=== PATIENT | female | born 1985 | race Caucasian/White ===

== ENCOUNTER 2021-11-11 12:10 | Emergency (ER) | payer SELFPAY ==
[~2021-11-11] VITALS: Ht 162.6 cm; Wt 142.9 kg
[2021-11-11 12:16] VITALS: BP 121/74
--- NOTE | 2021-11-11 12:31 | NUR ---
SHANI VASQUEZ AT BEDSIDE EXAMINING PT
[2021-11-11] MEDS ORDERED: NACL 0.9% 1,000 ML IV ONE (12:35)
[2021-11-11] MEDS ORDERED: ONDANSETRON 4 MG/2 ML VIAL IVP ONE (12:35)
[2021-11-11] MEDS ORDERED: MORPHINE SULFATE 4 MG/ML SYR IVP ONE ×2 (12:35→13:25)
--- NOTE | 2021-11-11 12:43 | NUR ---
PT TAKEN TO CT VIA W/C.
--- NOTE | 2021-11-11 12:54 | NUR ---
PT BROUGHT BACK FROM CT VIA W/C.
--- NOTE | 2021-11-11 13:09 | NUR ---
35 y/o female bib self c/o lower abd pain x 1 day. Pt reports nausea, and diarrhea x 1 this am, yellow brown in color. ABD is soft and tender to palpation. Respirations are even and unlabored. Pt is A&O x 4, even and steady gait. Pt reports taking x2 tylenol 500 mg this am. Pt denies fever, sob, headache, cp at this time. PMEDHX: Psoriasis, anxiety, MDD nkda
[2021-11-11 13:15] LABS: APPEARANCE,URINE CLEAR (CLEAR); BILIRUBIN,URINE 1+ (NEGATIVE); BLOOD, URINE NEGATIVE (NEGATIVE); COLOR,URINE DARK YELLOW (YELLOW); LEUKOCYTE ESTERASE ,URINE TRACE (NEGATIVE); NITRITE, URINE POSITIVE (NEGATIVE); UGLUCOSE NEGATIVE (NEGATIVE)
[2021-11-11 13:20] LABS: BASOPHILS % (AUTO) 0.2 % (0.0-2.0); EOSINOPHILS # (AUTO) 0.2 K/uL (0-0.4); EOSINOPHILS % (AUTO) 0.9 % (0.0-4.0); HEMATOCRIT 35.8 % (36-48); HEMOGLOBIN 11.9 g/dL (12.0-16.0); LYMPHOCYTES # (AUTO) 2.3 K/uL (2.5-16.5); LYMPHOCYTES % (AUTO) 9.8 % (20.5-51.1); MEAN CORPUSCULAR HEMOGLOBIN 28 pg (27-31); MEAN CORPUSCULAR HGB CONC 33 g/dL (33-37); MEAN CORPUSCULAR VOLUME 84.7 fL (80-94); MONOCYTES # (AUTO) 0.8 K/uL (0.8-1.0); MONOCYTES % (AUTO) 3.4 % (1.7-9.3); NEUTROPHILS # (AUTO) 20.1 K/uL (1.8-7.7); NEUTROPHILS % (AUTO) 85.7 % (42.2-75.2); PLATELET COUNT (AUTO) 374 K/uL (140-450); RED BLOOD CELL COUNT(AUTO) 4.22 MIL/uL (4.20-5.40)
[2021-11-11 13:22] LABS: RBC,URINE 0-5 /HPF (0-5)
[2021-11-11 13:26] LABS: CALCIUM OXALATE CRYSTALS,UR None Seen /HPF (None Seen); COARSE GRANULAR CASTS,URINE None Seen /LPF (None Seen); FINE GRANULAR CASTS,URINE None Seen /LPF (None Seen); OTHER CASTS, URINE None Seen /LPF (None Seen); OTHER CRYSTALS,URINE None Seen /HPF (None Seen); RED BLOOD CELL CASTS,URINE None Seen /LPF (None Seen); TRICHOMONAS,URINE None Seen /HPF (None Seen); TRIPLE PHOSPHATE CRYSTAL,UR None Seen /HPF (None Seen); URIC ACID CRYSTALS,URINE None Seen /HPF (None Seen); URINE AMORPHOUS URATE None Seen /HPF (None Seen); WAXY CASTS,URINE None Seen /LPF (None Seen); YEAST,URINE None Seen /HPF (None Seen)
[2021-11-11 13:27] LABS: HYALINE CASTS, URINE 0-10 /LPF (None Seen)
[2021-11-11 13:49] LABS: ALBUMIN 3.3 g/dL (3.4-5.0); ANION GAP 13.6 (8-16); CARBON DIOXIDE 27.1 mmol/L (21-32); CREATININE 0.9 mg/dL (0.6-1.3); POTASSIUM 3.7 mmol/L (3.5-5.1); TOTAL BILIRUBIN 0.7 mg/dL (0.0-1.0)
[2021-11-11 13:55] LABS: WHITE BLOOD COUNT (AUTO) 23.5 K/uL (4.8-10.8)
[2021-11-11] MEDS ORDERED: ACET-8386 PO (14:03)
[2021-11-11] MEDS ORDERED: SULF-59 PO (14:03)
[2021-11-11] MEDS ORDERED: ONDA-188 SL (14:03)
[2021-11-11 14:14] VITALS: BP 111/61
--- NOTE | 2021-11-11 14:15 | NUR ---
Patient discharged with v/s stable. Written and verbal after care instructions given and explained about uti. Patient alert, oriented and verbalized understanding of instructions. Ambulatory with steady gait. All questions addressed prior to discharge. ID band removed. Patient advised to follow up with PMD. Rx of norco, zofran, bactrim given. Patient educated on indication of medication including possible reaction and side effects. Opportunity to ask questions provided and answered.
--- NOTE | 2021-11-14 12:56 | NUR ---
LATE ENTRY- IV NORMAL SALINE DISCONTINUED AT 1415.
== END 2021-11-11 14:14 | disposition home or self-care (01) ==
LOC: MED 12:10
DX: N39.0 Urinary tract infection, site not specified (principal); R19.7 Diarrhea, unspecified; R11.0 Nausea; F41.9 Anxiety disorder, unspecified; Z98.890 Other specified postprocedural states; Z79.899 Other long term (current) drug therapy
CPT/HCPCS: 36415; 74176; 80053; 81001; 81025; 83690; 85025; 87086; 96361; 96374; 96375; 99284; J2270; J2405; J7030

== ENCOUNTER 2021-11-23 10:16 | Emergency (ER) | payer SELFPAY ==
[~2021-11-23] VITALS: Ht 162.6 cm; Wt 145.1 kg
[~2021-11-23 10:16] MED LIST: ACET-8386 PO; ONDA-188 SL; SULF-59 PO
[2021-11-23 10:19] VITALS: BP 154/49
--- NOTE | 2021-11-23 10:22 | NUR ---
AT PATIENT BEDSIDE
--- NOTE | 2021-11-23 10:23 | NUR ---
36 Y/O FEMALE BIB SELF C/O LLQ ABDOMINAL PAIN/ NAUSEA X 2WKS. PT STATES PAIN IS RATED 8/10 CONSTANT, STABBING WHICH RADIATES TO BACK. PT DENIES AGGRAVATING OR ALLEVIATING FACTORS. ABDOMEN IS TENDER TO PALPATION. PT. DENIES HEMATURIA, DYSURIA, DIARRHEA, CONSTIPATION, FEVER OR CHILLS. PT TOOK TYLENOL THIS AM FOR PAIN. PT WAS SEEN HERE FOR UTI 11/04/21. PT IS A&O X4. BED AT LOWEST POSITION, BED RAIL X1. PMH: PSORIASIS, ANXIETY, MDD
[2021-11-23] MEDS ORDERED: KETOROLAC 30 MG/ML VIAL IVP ONE (10:40)
[2021-11-23] MEDS ORDERED: NACL 0.9% 1,000 ML IV ONE (10:40)
--- NOTE | 2021-11-23 10:50 | NUR ---
BLOOD AND CULTURES COLLECTED HANDED TO [employer]INE[employer]
--- NOTE | 2021-11-23 11:00 | NUR ---
US AT PT. BEDSIDE
[2021-11-23 11:13] LABS: BASOPHILS # (AUTO) 0.1 K/uL (0.00-0.22); BASOPHILS % (AUTO) 0.6 % (0.0-2.0); EOSINOPHILS # (AUTO) 0.5 K/uL (0-0.4); EOSINOPHILS % (AUTO) 4.1 % (0.0-4.0); HEMATOCRIT 36.4 % (36-48); LYMPHOCYTES # (AUTO) 3.2 K/uL (2.5-16.5); LYMPHOCYTES % (AUTO) 24.5 % (20.5-51.1); MEAN CORPUSCULAR HEMOGLOBIN 28 pg (27-31); MEAN CORPUSCULAR HGB CONC 33 g/dL (33-37); MEAN CORPUSCULAR VOLUME 84.8 fL (80-94); MONOCYTES # (AUTO) 0.5 K/uL (0.8-1.0); MONOCYTES % (AUTO) 3.7 % (1.7-9.3); NEUTROPHILS # (AUTO) 8.7 K/uL (1.8-7.7); NEUTROPHILS % (AUTO) 67.1 % (42.2-75.2); PLATELET COUNT (AUTO) 366 K/uL (140-450); RED BLOOD CELL COUNT(AUTO) 4.29 MIL/uL (4.20-5.40); RED CELL DISTRIBUTION WIDTH 14.9 % (11.6-13.7)
[2021-11-23 11:28] LABS: ALBUMIN 3.1 g/dL (3.4-5.0); CARBON DIOXIDE 29.3 mmol/L (21-32); CREATININE 0.7 mg/dL (0.6-1.3); POTASSIUM 4.3 mmol/L (3.5-5.1); TOTAL BILIRUBIN 0.2 mg/dL (0.0-1.0)
[2021-11-23 11:56] LABS: APPEARANCE,URINE SL CLOUDY (CLEAR); BILIRUBIN,URINE NEGATIVE (NEGATIVE); BLOOD, URINE NEGATIVE (NEGATIVE); COLOR,URINE YELLOW (YELLOW); LEUKOCYTE ESTERASE ,URINE 1+ (NEGATIVE); NITRITE, URINE NEGATIVE (NEGATIVE); UGLUCOSE NEGATIVE (NEGATIVE)
[2021-11-23] MEDS ORDERED: ONDANSETRON 4 MG/2 ML VIAL IVP ONE (12:25)
[2021-11-23] MEDS ORDERED: MORPHINE SULFATE 4 MG/ML SYR IVP ONE (12:25)
[2021-11-23 13:28] LABS: CALCIUM OXALATE CRYSTALS,UR None Seen /HPF (None Seen); COARSE GRANULAR CASTS,URINE None Seen /LPF (None Seen); FINE GRANULAR CASTS,URINE None Seen /LPF (None Seen); HYALINE CASTS, URINE None Seen /LPF (None Seen); OTHER CRYSTALS,URINE None Seen /HPF (None Seen); RBC,URINE 0-5 /HPF (0-5); TRICHOMONAS,URINE None Seen /HPF (None Seen); TRIPLE PHOSPHATE CRYSTAL,UR None Seen /HPF (None Seen); URIC ACID CRYSTALS,URINE None Seen /HPF (None Seen); URINE AMORPHOUS URATE None Seen /HPF (None Seen); WAXY CASTS,URINE None Seen /LPF (None Seen); YEAST,URINE None Seen /HPF (None Seen)
[2021-11-23 13:29] LABS: OTHER CASTS, URINE None Seen /LPF (None Seen); RED BLOOD CELL CASTS,URINE None Seen /LPF (None Seen)
[2021-11-23] MEDS ORDERED: ACET-8386 PO (13:53)
[2021-11-23 14:05] VITALS: BP 113/58
[2021-11-24 22:19] LABS: MYOGLOBIN, SERUM <21 ng/mL (28 - 72)
--- NOTE | 2021-11-27 08:14 | NUR ---
RECEIVED LAB RESULT FOR GC + AT THIS TIME. COPY TO BE PLACED IN INFECTION CONTROL FILE. DISCREPTANCY FILED.
== END 2021-11-23 14:05 | disposition home or self-care (01) ==
LOC: MED 10:16
DX: R10.32 Left lower quadrant pain (principal); R11.0 Nausea; F41.9 Anxiety disorder, unspecified; L40.9 Psoriasis, unspecified; Z79.899 Other long term (current) drug therapy
CPT/HCPCS: 36415; 74176; 76830; 80053; 81001; 82553; 83605; 83874; 85025; 87086; 87491; 96361; 96374; 96375; 99285; J1885; J2270; J2405; J7030; Q0092; 96372

== ENCOUNTER 2021-11-27 13:55 | Emergency (ER) | payer SELFPAY ==
[~2021-11-27] VITALS: Ht 162.6 cm; Wt 145.1 kg
[2021-11-27 14:01] VITALS: BP 144/91
--- NOTE | 2021-11-27 14:08 | NUR ---
BIB SELF FOR RECHECK. C/O LOWER BACK PAIN X 2 WEEK. SEEN AT ER [facility] LAST NIGHT FOR PID & ANTIBIOTIC DOXYCYCLINE. SEEN HERE 11/23/21 FOR ABDOMINAL PAIN & LAB RESULT: + GONORRHEA
--- NOTE | 2021-11-27 14:10 | NUR ---
Maria Guadalupe driver in ED - 11/27/21 at 1410 by [facility] Patient being evaluated by CHETNA at bedside.
--- NOTE | 2021-11-27 14:10 | NUR ---
Patient being evaluated by CHETNA at TRIAGE ROOM.
[2021-11-27] MEDS ORDERED: DOXY-487 PO (14:14)
[2021-11-27] MEDS ORDERED: AZITHROMYCIN 250 MG TAB PO ONE (14:15)
[2021-11-27] MEDS ORDERED: cefTRIAXone 1,000 MG in LIDOCAINE MPF 1% 2.1 ML IM ONE (14:15)
[2021-11-27] MEDS ORDERED: cefTRIAXone 1,000 MG VIAL ONE (14:15)
[2021-11-27] MEDS ORDERED: LIDOCAINE MPF 1% 5 ML ONE (14:16)
[2021-11-27 14:30] VITALS: BP 144/91
== END 2021-11-27 14:30 | disposition home or self-care (01) ==
LOC: MED 13:55
DX: A54.9 Gonococcal infection, unspecified (principal); M54.9 Dorsalgia, unspecified; Z79.2 Long term (current) use of antibiotics; Z79.891 Long term (current) use of opiate analgesic; Z79.899 Other long term (current) drug therapy
CPT/HCPCS: 96372; 99283; J0696; J2001